=== PATIENT | male | born 1955 | race Caucasian/White ===

== ENCOUNTER 2016-12-22 14:15 | Outpatient (CLI) | payer OTHER ==
--- NOTE | 2016-12-23 08:16 | RAD ---
RIGHT KNEE TWO VIEWS 12/22/16 HISTORY: Right knee pain and instability. FINDINGS: There are mild degenerative changes in the knee joint manifested by osteophyte formation and joint s pace narrowing. Chondrocalcinosis is present. No fracture, dislocation, or bony destruction is ident ified. Ossific densities in the suprapatellar joint space consistent with synovial osteochondromatos is. IMPRESSION: 1. Right knee osteoarthritis. 2. Synovial osteochondromatosis of the right knee. 3. Chondrocalcinosis. POS: NIA
--- NOTE | 2016-12-23 08:16 | RAD ---
LUMBAR SPINE THREE VIEWS: 12/22/16 HISTORY: 61-year-old male with back pain and disability evaluation. Postop laminectomy changes at L5 with prominent left lateral disc osteophyte at L5-S1. Extensive mul tilevel spondylosis with disc osteophytosis and facet arthrosis. No acute fracture. Stable appearanc e from 07/17/14. IMPRESSION: Extensive spondylosis. Postoperative laminectomy at L5. Stable. POS: NIA
== END 2016-12-22 14:16 | disposition home or self-care (01) ==
LOC: NAV RAD 14:15
PROVIDERS: ATTEND Family Medicine
DX: Z02.71 Encounter for disability determination (principal); M17.11 Unilateral primary osteoarthritis, right knee; M47.816 Spondylosis without myelopathy or radiculopathy, lumbar region
CPT/HCPCS: 72100

== ENCOUNTER 2019-09-06 18:13 | Emergency (ER) | payer MEDICARE ==
[2019-09-06] MEDS ORDERED: Fluorescein Opthalmic Strip ONE (19:00)
== END 2019-09-06 19:30 | disposition home or self-care (01) ==
LOC: NAV ERS 18:13
DX: B30.9 Viral conjunctivitis, unspecified (principal); S00.211A Abrasion of right eyelid and periocular area, initial encounter; A08.4 Viral intestinal infection, unspecified; I10 Essential (primary) hypertension; F32.9 Major depressive disorder, single episode, unspecified; Z79.891 Long term (current) use of opiate analgesic; Z79.899 Other long term (current) drug therapy; X58.XXXA Exposure to other specified factors, initial encounter
CPT/HCPCS: 99283

== ENCOUNTER 2020-09-05 19:17 | Emergency (ER) | payer MEDICARE | END 2020-09-05 21:50 | disposition short-term general hospital (02) | LOC: NAV ERS 19:17 | DX: M79.605 Pain in left leg (principal); I10 Essential (primary) hypertension; Z79.899 Other long term (current) drug therapy | CPT/HCPCS: 85379; 99284 ==